=== PATIENT | female | born 1960 | race Caucasian/White ===

== ENCOUNTER → 2017-08-24 | Outpatient (CLI) | payer OTHER ==
[~2017-08-24] VITALS: Ht 165.1 cm; Wt 82.5 kg
[~2017-08-24] MED LIST: GLUCOPHAGE500 MG PO; JANUVIA100 MG PO; LISINOPRIL-HCT1 EAC3; LISINOPRIL2.5 MG PO; PRINZIDE 20-121 EACH PO; TENORMIN50 MG PO
[2017-08-24 08:54] LABS: POINT-OF-CARE METER ID UU14107333
[2017-08-24 10:35] LABS: POINT-OF-CARE METER ID UU13113819; POINT-OF-CARE USER ID 515036437
== END | disposition home or self-care (01) ==
LOC: AMB 08:15
PROVIDERS: Internal Medicine
DX: D12.4 Benign neoplasm of descending colon (principal); K64.8 Other hemorrhoids; R19.4 Change in bowel habit; E11.9 Type 2 diabetes mellitus without complications; E78.5 Hyperlipidemia, unspecified; I10 Essential (primary) hypertension; E55.9 Vitamin D deficiency, unspecified; F43.21 Adjustment disorder with depressed mood; Z90.49 Acquired absence of other specified parts of digestive tract; Z83.79 Family history of other diseases of the digestive system; Z82.0 Family history of epilepsy and other diseases of the nervous system; Z82.49 Family history of ischemic heart disease and other diseases of the circulatory system; Z79.84 Long term (current) use of oral hypoglycemic drugs
CPT/HCPCS: 82948; 88305; 93005; J2250